=== PATIENT | male | born 1975 | race Caucasian/White ===

== ENCOUNTER 2016-04-06 11:16 | Emergency (ER) | payer OTHER ==
[~2016-04-06] VITALS: Ht 177.8 cm; Wt 115.9 kg
[2016-04-06 11:21] VITALS: BP 198/136; PULSE 95; RESP 20; O2SAT 99
[2016-04-06 11:55] LABS: BASOPHILS % (AUTO) 0.5 % (0-3); EOSINOPHILS % (AUTO) 2.5 % (0-5); MONOCYTES % (AUTO) 6.2 % (4-12); Mean Corpuscular Hemoglobin 30.1 pg (27.0-35.0); Mean Corpuscular Volume 87.6 fL (81-100); NEUTROPHILS % (AUTO) 60.1 % (40-74); Platelet Count 164 bil/L (150-400)
--- NOTE | 2016-04-06 12:12 | DRSVH ---
PROCEDURE: X-RAY CHEST ONE VIEW, PORTABLE ([id number]) INDICATIONS: CP TECHNIQUE: One view of the chest was acquired. COMPARISON: None. FINDINGS: Surgical changes and devices: None. Lungs and pleura: No pleural effusions or pneumothorax. Lungs are clear. Mediastinum: Mediastinal contours appear normal. Heart size is normal. Bones and chest wall: No suspicious bony lesions. Overlying soft tissues appear unremarkable. IMPRESSION: 1. No acute cardiopulmonary disease. Dictated by: Julius Schmid M.D. on 04/06/2016 at 12:11 Approved by: Julius Schmid M.D. on 04/06/2016 at 12:11
[2016-04-06 12:33] LABS: TROPONIN T 0.01 ug/L (0.0-0.011)
[2016-04-06 13:18] VITALS: BP 163/101; PULSE 87; RESP 17; RESP 19; O2SAT 97
--- NOTE | 2016-04-06 13:18 | ED.REPORT ---
HPI-Chest Pain 40 and Over Date of Service Apr 06, 2016 ED Provider: Xavier Hernandes MD 40 year old male with HTN presents to the ER complaining of a 10-minute episode of substernal chest pressure onset around 06:00 this morning upon awakening. Currently symptoms are completely resolved, and he reports that he has been asymptomatic since the episode this morning. He was seen by his primary care provider earlier today to discuss his blood pressure medications, at which time he had an ECG done and was subsequently referred to the ER for further testing. Similar episode three weeks ago. Patient denies radiation of pain, shortness of breath, and history of MO, PE, or DVT. He does not take ASA. Nursing Notes Stated Complaint: CHEST PAIN Chief Complaint: Chest Pain Nursing Notes Reviewed: Yes Allergies: Coded Allergies: No Known Allergies (Unverified , 04/06/16) General Time Seen by MD: 11:35 Chief Complaint Chest pressure Hx Obtained From: Patient Arrived By: Walk-in Sudden in Onset?: Yes Onset Occurred: 5 - 8 hours ago Location: : Substernal Quality: Pressure Radiation: : Does not radiate Severity: Current: No pain currently Severity: Maximum: Moderate Pertinent Negative: Pt denies other symptoms Pertinent Negative: Exacerbated by nothing, Relieved by nothing Context Related History: Reports: Hypertension, Denies: Myocardial infarction Similar Sx Previous: Yes Past Medical History Past Medical History Reports: Hypertension, Denies: COPD, Congestive heart failure, Coronary artery disease, GERD Smoking History Unknown if Ever Smoker Ambulatory Status Independent Review of Systems Constitutional: Denies: Chills, Fever Respiratory: Denies: Non-productive cough, Shortness of breath Cardiovascular: Reports: Chest pain GI: Denies: Abdominal pain, Nausea, Vomiting Musculoskeletal: Denies: Extremity pain, Extremity swelling, Neck pain Skin: Denies Diaphoresis Complete sys rev & neg: except as marked. Physical Exam Initial Vital Signs Vital Signs (First) Date Time Temp Pulse Resp B/P Pulse Ox O2 Delivery O2 Flow Rate FiO2 04/06/16 11:21 36.7 95 20 198/136 99 Room Air Initial VS: Reviewed Head / Eyes: Atraumatic, Normocephalic Neck: Supple, Non-tender, Full range of motion Extremities: Vascular intact, Neuro intact, No swelling, No tenderness Skin: Warm, Dry, No cyanosis Neurologic: Alert, Oriented, Nonfocal Psychiatric: Mood/affect normal, Behavior normal, Normal thought content General/Constitutional: Awake, Alert, No acute distress, Well appearing, Well developed, Well nourished Respiratory / Chest: Breath sounds NL, Breath sounds = bilat, No respiratory distress, No rales, No rhonchi, No wheezing, No stridor, No chest tenderness Cardiovascular: Heart rate NL, Regular rhythm, Heart sounds NL, No murmurs, Peripheral circulation NL, Pulses = bilaterally, No gross BP differential Abdomen: Soft, Non-tender, No guarding, No rebound, No distention Interpretation & Diagnostics Lab Results Interpretation Result Diagram: 04/06/16 1143 04/06/16 1143 Test 04/06/16 11:43 04/06/16 13:46 White Blood Count 5.6th/mm3 (3.8-10.1) Red Blood Count 5.39mil/mm3 (4.40-5.80) Hemoglobin 16.2g/dL (13.8-17.2) Hematocrit 47.2% (41.0-50.0) Mean Corpuscular Volume 87.6fL (81-100) Mean Corpuscular Hemoglobin 30.1pg (27.0-35.0) Mean Corpuscular Hemoglobin Concent 34.3% (32.0-37.0) Red Cell Distribution Width 13.1% (12.3-15.4) Platelet Count 164bil/L (150-400) Neutrophils (%) (Auto) 60.1% (40-74) Lymphocytes (%) (Auto) 30.2% (14-46) Monocytes (%) (Auto) 6.2% (4-12) Eosinophils (%) (Auto) 2.5% (0-5) Basophils (%) (Auto) 0.5% (0-3) Sodium Level 139mEq/L (134-144) Potassium Level 3.6mEq/L (3.5-5.2) Chloride Level 99mEq/L (97-108) Carbon Dioxide Level 25mmol/L (18-29) Blood Urea Nitrogen 15mg/dL (6-24) Creatinine 0.66mg/dL (0.76-1.27) Estimat Glomerular Filtration Rate 141mL/min (>59) Glucose Level 244mg/dL (60-99) Calcium Level 9.2mg/dL (8.5-10.1) Magnesium Level 2.0mg/dL (1.6-2.6) Total Bilirubin 1.0mg/dL (0.0-1.2) Aspartate Amino Transf (AST/SGOT) 19U/L (0-50) Alanine Aminotransferase (ALT/SGPT) 29U/L (0-44) Alkaline Phosphatase 84U/L (25-150) Total Protein 7.8g/dL (6.4-8.4) Albumin 4.7g/dL (3.4-5.0) Hold Wilhelm Top Tube Received (Received) Troponin T < 0.010ug/L (0.0-0.011) ECG Interpretation ECG Interpretation: Sinus rhythm, rate 89 Left axis deviation No ST segment elevation No T wave abnormalities Time: 13:07 Interpreted by: ED physician Repeat ECG: Repeat ECG unchanged X-Ray Chest Interpretation Chest Xray Interpretation: IMPRESSION: 1. No acute cardiopulmonary disease. Dictated by: Julius Schmid M.D. on 04/06/2016 at 12:11 Approved by: Julius Schmid M.D. on 04/06/2016 at 12:11 View: Portable, 1 view Interpretation / Wet Read by: Interpret - Radiologist Re-Eval/Medical Decision Med Decision/Clinical Course 40 year old male with HTN presents to the ER complaining of a 10-minute episode of substernal chest pressure onset around 06:00 this morning upon awakening. Currently symptoms are completely resolved, and he reports that he has been asymptomatic since the episode this morning. Episode lasted 5-10 minutes. He was seen by his primary care provider earlier today to discuss his blood pressure medications, at which time he had an ECG done and was subsequently referred to the ER for further testing. Similar episode three weeks ago. Patient denies radiation of pain, shortness of breath, and history of MO, PE, or DVT. He does not take ASA. Emergency department he is moderately hypertensive though otherwise afebrile with stable vital signs and in no apparent distress. 324 mg of aspirin were given. EKG was obtained and interpreted by myself as documented above. CXR: Obtained, reviewed and interpreted by myself shows no evidence of acute infiltrates, effusions or pneumothorax. Cardiac and mediastinal silhouette normal. No bony or soft tissue abnormalities. Laboratory studies notable as below: CBC normal Chemistry normal Troponin negative Patient reported complete resolution of his brief symptoms lasting 5-10 minutes and no history of coronary artery disease. Serial troponins here in the emergency department were negative and repeat EKG demonstrated no coughing ischemic changes. Patient did not desire admission for further workup or cardiac risk stratification. Overall presentation relatively unconvincing for acute coronary syndrome at this time. No symptoms reproducible with exertion. Presentation of pulmonary embolism. No evidence of pneumonia or pneumothorax. He will follow up with his primary care physician as an outpatient for additional cardiac risk stratification. Follow-up and return precautions were reviewed in detail and he is discharged in stable condition. He is advised to start taking a baby aspirin daily. Source of Hx: Old records Time of Eval: 13:24 Re-Evaluation/Progress Note: Discussed lab and radiology results and plan to discharge pending repeat troponin. Patient is amenable to the plan. Return precautions given. All other questions addressed. Counseled Regarding: Diagnosis, Lab results, Need for follow-up, When/why to return to ED Discharge & Departure Primary Impression: Chest pain Chest pain type: unspecified Qualified Code: R07.9 - Chest pain, unspecified Disposition: Home Discharge Condition All VS Reviewed: Yes Condition: Stable Patient Instructions: Chest Pain (ED) Additional Instructions: Thank you for seeking care at emergency room. We did several tests on her heart today and we see no indication that you are experiencing a heart attack. Our primary goal today in the ED was to evaluate you for any life-threatening conditions. Your evaluation was reassuring. You should start taking a baby aspirin daily and follow-up with her primary care doctor in the next 48 hours to discuss further tests on your heart such as a stress test. You should return to the ED immediately if you develop recurrent chest pain, shortness of breath or any other concerning signs or symptoms. Thank you for letting us partake in your care today. Referrals: Parth Singleton MD (PCP) Scribgabriela Attestation Portions of this note were transcribed by Demetri Genao. I, Dr. Hernandes, personally performed the history, physical exam and medical decision-making; I reviewed and confirmed the accuracy of the information in the transcribed note. Signed by: Brad Jacome, 04/06/2016 and 14:36 copies to: Parth Singleton MD, Beck O MD Apr 06, 2016 13:18 DEMETRI GENAO Apr 06, 2016 13:28
[2016-04-06 14:33] VITALS: BP 145/112; PULSE 82; RESP 17; O2SAT 94
[2016-04-06 14:41] VITALS: BP 145/112; PULSE 82; RESP 17; O2SAT 94
== END 2016-04-06 14:42 | disposition home or self-care (01) ==
LOC: SED 11:16
DX: R07.2 Precordial pain (principal); I10 Essential (primary) hypertension